=== PATIENT | female | born 1945 | race Caucasian/White ===

== ENCOUNTER 2017-01-30 10:04 | Inpatient (IN) | payer OTHER, BC ==
[~2017-01-30] VITALS: Ht 154.9 cm; Wt 86.6 kg
--- NOTE | ~2017-01-30 | EKG ---
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 : 1945 Requested By: Sanjay Tejada Order Number: [id number] MD: Victor Manuel Andujar Measurements Intervals [place] Rate: 103 P: -3 ND: 140 QRS: 123 QRSD: 92 T: 21 QT: 385 QTc: 504 Interpretive Statements Sinus tachycardia Poor R wave progression Prolonged QT interval Compared to ECG 06/08/2002 20:44:04 No significant change was found Electronically Signed On 01-31-2017 8:31:27 CDT by Victor Manuel Andujar [email or web address] <ELECTRONICALLY SIGNED> By: Victor Manuel Andujar MD, [facility] 01/31/17830 103 103 Victor Manuel Andujar MD, [facility] /EPI
[~2017-01-30 10:04] MED LIST: ASPIRIN EC325 M1 PO; CALCIUM 600 +1 EAC8 PO; GLUCOSAMINE-CH1 EA36 PO; HUMULIN N100 UNIT/1 SUBQ; HUMULINR100; LIPITOR20 MG PO; POTASSIUM99 M1 PO
[2017-01-30 10:08] VITALS: BP 98/66
[2017-01-30 10:52] LABS: ABSOLUTE NEUTROPHILS 8.4 thou/uL (1.4-8.2); BASOPHILS 0.8 % (0.0-2.0); EOSINOPHILS 1.4 % (0.0-3.0); HEMATOCRIT 36.7 % (37.0-47.0); HEMOGLOBIN 12.2 gm/dL (12.0-15.0); LYMPHOCYTES 20.3 % (24.0-44.0); MCH 29.9 pg (26.0-34.0); MCHC 33.2 g/dL (28.0-37.0); MCV 90.1 fL (80.0-100.0); MONOCYTES 7.1 % (1.0-8.0); PLATELET COUNT 294 thou/uL (150-400); POLYS 70.4 % (36.0-66.0); RBC 4.07 mil/uL (4.20-5.00); RDW 13.7 % (10.5-14.5); WBC 11.9 thou/uL (4.0-11.0)
[2017-01-30 10:54] LABS: MANUAL DIFF NO
[2017-01-30 11:04] LABS: APTT 20.7 Seconds (24.5-32.8); PROTIME 10.4 Seconds (9.3-11.4)
[2017-01-30 11:28] LABS: CALCIUM 9.5 mg/dL (8.5-10.1); CREATININE 0.5 mg/dL (0.6-1.0); POTASSIUM 4.1 mmol/L (3.5-5.1)
[2017-01-30 11:36] LABS: TROPONIN-I 0.04 ng/mL (<0.04-0.07)
[2017-01-30 12:38] VITALS: BP 119/69
[2017-01-30 12:43] VITALS: BP 119/69
[2017-01-30] MEDS ORDERED: NORCO 5-325 TA1 EACH PO (15:11)
[2017-01-30] MEDS ORDERED: NOVOLOG100 UNIT/1 SUBQ (15:14)
[2017-01-30] MEDS ORDERED: HUMULIN R100 UNIT/M SUBQ (15:18)
[2017-01-30] MEDS ORDERED: KLOR-CON 1010 MEQ PO (15:21)
[2017-01-30] MEDS ORDERED: KETOCONAZOLE60 GM TOP (15:23)
[2017-01-30] MEDS ORDERED: TRAMADOL 50 MG50 MG PO (15:27)
[2017-01-30 19:15] VITALS: BP 116/55
[2017-01-30 22:07] LABS: HEMATOCRIT 32.5 % (37.0-47.0); HEMOGLOBIN 11.1 gm/dL (12.0-15.0)
[2017-01-30 23:28] VITALS: BP 130/47
[2017-01-31 04:06] VITALS: BP 95/40
[2017-01-31 04:25] LABS: ABSOLUTE NEUTROPHILS 6.9 thou/uL (1.4-8.2); BASOPHILS 0.9 % (0.0-2.0); EOSINOPHILS 1.3 % (0.0-3.0); HEMATOCRIT 29.1 % (37.0-47.0); HEMOGLOBIN 10.1 gm/dL (12.0-15.0); LYMPHOCYTES 21.3 % (24.0-44.0); MCH 30.7 pg (26.0-34.0); MCHC 34.5 g/dL (28.0-37.0); MCV 89.1 fL (80.0-100.0); MONOCYTES 7.7 % (1.0-8.0); PLATELET COUNT 256 thou/uL (150-400); POLYS 68.8 % (36.0-66.0); RBC 3.27 mil/uL (4.20-5.00); RDW 13.6 % (10.5-14.5)
[2017-01-31 04:30] LABS: MANUAL DIFF NO
[2017-01-31 04:31] LABS: CALCIUM 8.4 mg/dL (8.5-10.1); CREATININE 0.5 mg/dL (0.6-1.0)
[2017-01-31 07:35] VITALS: BP 98/36
[2017-01-31] MEDS ORDERED: CIPRO500 MG PO (09:24)
[2017-01-31] MEDS ORDERED: FLAGYL500 MG PO (09:24)
[2017-01-31 10:41] VITALS: BP 98/36
== END 2017-01-31 12:51 | disposition home or self-care (01) | DRG 391 ==
LOC: ER 10:04 → 2N 12:09 → ENTRNSPT 01-31 12:37 → EDTRNSPTSTS 01-31 12:39 → 2N 01-31 12:51
PROVIDERS: Emergency Medicine; Internal Medicine Gastroenterology; Internal Medicine Geriatric Medicine
DX: K57.92 Diverticulitis of intestine, part unspecified, without perforation or abscess without bleeding (principal); J96.21 Acute and chronic respiratory failure with hypoxia; I10 Essential (primary) hypertension; J44.9 Chronic obstructive pulmonary disease, unspecified; M54.9 Dorsalgia, unspecified; R10.2 Pelvic and perineal pain; E78.5 Hyperlipidemia, unspecified; F17.200 Nicotine dependence, unspecified, uncomplicated; E11.51 Type 2 diabetes mellitus with diabetic peripheral angiopathy without gangrene; Z90.49 Acquired absence of other specified parts of digestive tract; Z90.89 Acquired absence of other organs; Z90.710 Acquired absence of both cervix and uterus; Z88.6 Allergy status to analgesic agent; Z88.8 Allergy status to other drugs, medicaments and biological substances; Z79.82 Long term (current) use of aspirin; Z79.4 Long term (current) use of insulin; Z79.899 Other long term (current) drug therapy; Z86.010 Personal history of colon polyps
CPT/HCPCS: 10081

== ENCOUNTER 2018-02-21 13:32 | Inpatient (IN) | payer OTHER, BC ==
[~2018-02-21] VITALS: Ht 154.9 cm; Wt 78.9 kg
--- NOTE | ~2018-02-21 | EKG ---
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 : 1945 Requested By: Christelle Schwartz Order Number: [id number] MD: Liang Travis Measurements Intervals [place] Rate: 93 P: 50 WI: 173 QRS: 162 QRSD: 96 T: 25 QT: 372 QTc: 463 Interpretive Statements Sinus rhythm Left posterior fascicular block Compared to ECG 01/30/2017 10:30:46 Left posterior fascicular block now present T-wave abnormality now present Sinus tachycardia no longer present Poor R-wave progression no longer present Prolonged QT interval no longer present Electronically Signed On 02-23-2018 17:29:14 CDT by Liang Travis [email or web address] <ELECTRONICALLY SIGNED> By: Liang Travis MD 02/23/18 1729 1353 1353 Liang Travis MD /EPI
--- NOTE | ~2018-02-21 | CRIT ---
[facility] [address] [place] [address] CRITICAL CARE NOTE Name: KARINANAHUN Azra Room #: 456-P ADM IN M.R.#: [id number] Admission: 02/21/18 Attend Phys: Daniel Paz MD Discharge: Date of : 41 Report #: [id number] THIS REPORT FOR: //name// CC: Daniel Dye SUBJECTIVE: The patient is a 72-year-old female I have been asked to see for further evaluation of bilateral left and right lower quadrant abdominal pain, which has occurred over the course of last 3 weeks or so. She has had recent development of diarrhea as well. Not a good historian; however, her daughter is at the bedside. She has had a colonoscopy in the past year or so. She has had history of diverticulosis, but no evidence of diverticulitis in the past. She has not had pain like this in the past. She has had bleeding from diverticulosis in the past. She denies any fevers or chills. She did have some nausea and vomiting. ALLERGIES: She is allergic to no medications. MEDICAL HISTORY: Notable for diabetes, diverticulosis, cholecystectomy, hysterectomy, tonsillectomy, peripheral vascular disease, hyperlipidemia, COPD, P. vera, pilonidal cyst. SOCIAL HISTORY: She smokes a pack per day. Currently denies significant alcohol consumption. REVIEW OF SYSTEMS: Negative for weight loss, weakness or fatigue. She denies head, eyes, ears, nose or throat complaints. She denies chest pain, chest palpitation, chest pressure, cough, shortness of breath, wheezing, genitourinary, musculoskeletal or neuropsychiatric complaints, otherwise. OBJECTIVE: VITAL SIGNS: Afebrile. Stable. HEENT: Nonicteric. NECK: No JVD, thyromegaly or bruits. CARDIOVASCULAR: Regular. LUNGS: Clear. ABDOMEN: Soft, nondistended. She does have tenderness in the left lower quadrant and right lower quadrant. No rebound or guarding. EXTREMITIES: No clubbing, cyanosis or edema. NEUROLOGIC: Not performed. RECTAL: Deferred. PERTINENT LABORATORY DATA: Include hemoglobin 17.1, white count 8.4. Serum chemistry reviewed. No significant abnormality. Urinalysis reviewed. C. diff pending. CT abdomen and pelvis, diffuse diverticulosis. No evidence of diverticulitis. She did have CT angiography in 2014, but this was of the head. [address] [address] CRITICAL CARE NOTE Name: NAHUN COLLINS Azra Room #: 456-P [facility] IN [facility]#: [id number] Admission: 02/21/18 Attend Phys: Daniel Paz MD Discharge: Date of : 41 Report #: [id number] In summary, the patient has tenesmus, change in bowel pattern with some constipation sensation as well as diarrhea and left and right lower quadrant pain suggestive of acute colitis. She has had a colonoscopy done in the past, which revealed only diverticulosis per her history. At this point, we will proceed with colonoscopy but are awaiting stool studies. I would advance her diet and monitor her and then consider a colonoscopy if her symptoms persist for definitive diagnosis and treatment. I did appreciate the opportunity to participate in her care. We will continue to follow. <ELECTRONICALLY SIGNED> By: Mustapha Noel MD 02/23/18 1727 0943 1307 Amadou Gregory MD /nt
[~2018-02-21 13:32] MED LIST changes: +CIPRO500 MG PO; +FLAGYL500 MG PO; +GLUCOSAMINE-CH1 EA15 PO; -GLUCOSAMINE-CH1 EA36 PO; +HUMULIN R100 UNIT/M SUBQ; +KETOCONAZOLE60 GM TOP; +KLOR-CON 1010 MEQ PO; +NORCO 5-325 TA1 EACH PO; +NOVOLOG100 UNIT/1 SUBQ; +TRAMADOL 50 MG50 MG PO
[2018-02-21 13:35] VITALS: BP 130/60
[2018-02-21 13:57] LABS: URINE BLOOD NEGATIVE (Negative); URINE CLARITY CLEAR; URINE COLOR YELLOW; URINE GLUCOSE-RANDOM* NEGATIVE (Negative); URINE KETONES 1+ (Negative); URINE LEUKOCYTES-REFLEX NEGATIVE (Negative); URINE NITRITE-REFLEX NEGATIVE (Negative); URINE PROTEIN (DIPSTICK) 1+ (Negative); URINE SPECIFIC GRAVITY 1.025 (1.005-1.035); URINE UROBILINOGEN 0.2 E.U./dl (0.2-1.0)
[2018-02-21 14:01] LABS: ICTOTEST (BILI CONFIRMATORY) Negative (Negative); URINE BILIRUBIN NEGATIVE (Negative)
[2018-02-21 14:03] LABS: CASTS None Seen /LPF (None Seen); CRYSTALS None Seen /LPF (None Seen); SQUAMOUS 4-10 Moderate /LPF (0-3); URINE RBC None Seen /HPF (0-2); URINE WBC-REFLEX None Seen /HPF (0-5)
[2018-02-21] MEDS ORDERED: HUMULIN N100 UNIT/1 SUBQ (14:03)
[2018-02-21] MEDS ORDERED: LIPITOR 20 MG T20 M1 PO (14:04)
[2018-02-21 14:31] LABS: HEMATOCRIT 49.7 % (37.0-47.0); HEMOGLOBIN 17.1 gm/dL (12.0-15.0); MCH 31.2 pg (26.0-34.0); MCHC 34.4 g/dL (28.0-37.0); MCV 90.6 fL (80.0-100.0); RBC 5.49 mil/uL (4.20-5.00); RDW 13.2 % (10.5-14.5); WBC 8.4 thou/uL (4.0-11.0)
[2018-02-21 14:42] LABS: ANION GAP 11 mmol/L (7-16); BUN 10 mg/dL (7-18); CALCIUM 10.1 mg/dL (8.5-10.1); CHLORIDE 100 mmol/L (98-107); CO2 25 mmol/L (21-32); CREATININE 0.8 mg/dL (0.6-1.0); GLUCOSE 212 mg/dL (74-106); POTASSIUM 3.9 mmol/L (3.5-5.1); SODIUM 136 mmol/L (136-145)
[2018-02-21 14:50] LABS: ALBUMIN 3.6 g/dL (3.4-5.0); LIPASE 54 U/L (73-393); SGOT 14 U/L (15-37); SGPT 13 U/L (30-65); TOTAL BILIRUBIN 0.4 mg/dL (<0.1-1.0); TROPONIN-I <0.06 ng/mL (<0.06)
[2018-02-21 15:40] VITALS: BP 140/70
[2018-02-21 16:31] VITALS: BP 155/80
[2018-02-21 17:28] LABS: TSH 1.067 uIU/mL (0.358-3.740)
[2018-02-21 21:30] VITALS: BP 135/80
[2018-02-22 05:18] VITALS: BP 126/61
[2018-02-22 06:13] LABS: HEMATOCRIT 46.4 % (37.0-47.0); MCH 29.4 pg (26.0-34.0); MCHC 32.2 g/dL (28.0-37.0); MCV 91.4 fL (80.0-100.0); RBC 5.08 mil/uL (4.20-5.00); RDW 13.8 % (10.5-14.5); WBC 11.6 thou/uL (4.0-11.0)
[2018-02-22 06:16] LABS: HEMOGLOBIN 14.9 gm/dL (12.0-15.0)
[2018-02-22 06:27] LABS: CALCIUM 8.6 mg/dL (8.5-10.1); CREATININE 0.6 mg/dL (0.6-1.0); MAGNESIUM 1.3 mg/dL (1.8-2.4); POTASSIUM 3.6 mmol/L (3.5-5.1)
[2018-02-22 07:24] VITALS: BP 155/89
[2018-02-22 16:01] VITALS: BP 110/58
[2018-02-22 18:56] VITALS: BP 132/59
[2018-02-23 03:56] VITALS: BP 157/80
[2018-02-23 08:27] VITALS: BP 130/67
[2018-02-23 08:42] LABS: HEMATOCRIT 44.9 % (37.0-47.0); HEMOGLOBIN 14.9 gm/dL (12.0-15.0); MCH 30.4 pg (26.0-34.0); MCHC 33.1 g/dL (28.0-37.0); MCV 91.8 fL (80.0-100.0); RBC 4.89 mil/uL (4.20-5.00); WBC 10.4 thou/uL (4.0-11.0)
[2018-02-23 08:53] LABS: CALCIUM 8.3 mg/dL (8.5-10.1); CREATININE 0.5 mg/dL (0.6-1.0); MAGNESIUM 1.6 mg/dL (1.8-2.4)
[2018-02-23 16:31] VITALS: BP 116/59
[2018-02-23 20:13] VITALS: BP 141/70
[2018-02-24 05:51] VITALS: BP 126/58
[2018-02-24 08:00] VITALS: BP 126/65
[2018-02-24 08:20] LABS: HEMATOCRIT 39.8 % (37.0-47.0); HEMOGLOBIN 13.4 gm/dL (12.0-15.0); MCH 30.8 pg (26.0-34.0); MCHC 33.7 g/dL (28.0-37.0); MCV 91.4 fL (80.0-100.0); RBC 4.36 mil/uL (4.20-5.00); RDW 13.9 % (10.5-14.5); WBC 7.9 thou/uL (4.0-11.0)
[2018-02-24 08:34] LABS: CALCIUM 8.1 mg/dL (8.5-10.1); CREATININE 0.6 mg/dL (0.6-1.0); MAGNESIUM 1.7 mg/dL (1.8-2.4); POTASSIUM 3.8 mmol/L (3.5-5.1)
[2018-02-24] MEDS ORDERED: FIRVANQ50 MG/1 ML PO (13:03)
[2018-02-24] MEDS ORDERED: NORCO 5-325 TA1 EACH PO (13:04)
[2018-02-24 13:23] VITALS: BP 126/65
[2018-02-24 15:50] VITALS: BP 106/56
[2018-02-24 19:50] VITALS: BP 154/78
[2018-02-25 04:10] VITALS: BP 122/52
[2018-02-25 08:00] VITALS: BP 143/74
== END 2018-02-25 13:50 | disposition home or self-care (01) | DRG 872 ==
LOC: ER 13:32 → EROBS 15:31 → 4W 15:31
PROVIDERS: Internal Medicine; Student in an Organized Health Care Education/Training Program
DX: A41.9 Sepsis, unspecified organism (principal); A04.72 Enterocolitis due to Clostridium difficile, not specified as recurrent; K57.20 Diverticulitis of large intestine with perforation and abscess without bleeding; E11.51 Type 2 diabetes mellitus with diabetic peripheral angiopathy without gangrene; E78.5 Hyperlipidemia, unspecified; J44.9 Chronic obstructive pulmonary disease, unspecified; F17.210 Nicotine dependence, cigarettes, uncomplicated; K76.9 Liver disease, unspecified; M19.90 Unspecified osteoarthritis, unspecified site; M81.0 Age-related osteoporosis without current pathological fracture; Z90.710 Acquired absence of both cervix and uterus; Z95.820 Peripheral vascular angioplasty status with implants and grafts; Z87.19 Personal history of other diseases of the digestive system; Z79.899 Other long term (current) drug therapy
CPT/HCPCS: 10040

== ENCOUNTER 2018-09-05 12:58 | Emergency (ER) | payer OTHER, BC ==
[~2018-09-05] VITALS: Ht 154.9 cm; Wt 78.9 kg
[~2018-09-05 12:58] MED LIST changes: +FIRVANQ50 MG/1 ML PO; +LIPITOR 20 MG T20 M1 PO
[2018-09-05 13:41] LABS: ABSOLUTE NEUTROPHILS 6.5 thou/uL (1.4-8.2); BASOPHILS 0.8 % (0.0-2.0); EOSINOPHILS 2.2 % (0.0-3.0); HEMATOCRIT 42.5 % (37.0-47.0); HEMOGLOBIN 14.4 gm/dL (12.0-15.0); LYMPHOCYTES 15.2 % (24.0-44.0); MCH 30.8 pg (26.0-34.0); MCV 90.8 fL (80.0-100.0); MONOCYTES 5.8 % (1.0-8.0); PLATELET COUNT 241 thou/uL (150-400); RBC 4.68 mil/uL (4.20-5.00); RDW 13.7 % (10.5-14.5); WBC 8.5 thou/uL (4.0-11.0)
[2018-09-05 13:50] LABS: ANION GAP 11 mmol/L (7-16); BUN 14 mg/dL (7-18); CALCIUM 9.2 mg/dL (8.5-10.1); CHLORIDE 105 mmol/L (98-107); CO2 27 mmol/L (21-32); CREATININE 0.7 mg/dL (0.6-1.0); GLUCOSE 361 mg/dL (74-106); POTASSIUM 4.2 mmol/L (3.5-5.1); SODIUM 143 mmol/L (136-145)
[2018-09-05 13:58] LABS: TROPONIN-I <0.06 ng/mL (<0.06)
[2018-09-05] MEDS ORDERED: PREDNISONE 20 M20 MG PO (16:36)
[2018-09-05 16:54] VITALS: BP 135/67
--- NOTE | 2018-09-06 13:38 | EKG ---
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[facility] : 1945 Requested By: Chinyere Nunn Order Number: [id number] MD: Victor Manuel Andujar Measurements Intervals [place] Rate: 94 P: 37 MS: 197 QRS: 133 QRSD: 98 T: -2 QT: 374 QTc: 468 Interpretive Statements Sinus rhythm Left posterior fascicular block Borderline T wave abnormalities Compared to ECG 02/21/2018 13:53:24 No significant change was found Electronically Signed On 09-06-2018 13:38:23 CDT by Victor Manuel Andujar [email or web address] ��������������������������������������������� <ELECTRONICALLY SIGNED> ���������������������������������������� By: Victor Manuel Andujar MD, [facility] ��������������������������������������������� 09/06/18 1338 1315 131 Victor Manuel Andujar MD, [facility] /EPI
== END 2018-09-05 17:21 | disposition home or self-care (01) ==
LOC: ER 12:58
PROVIDERS: Emergency Medicine
DX: J44.1 Chronic obstructive pulmonary disease with (acute) exacerbation (principal); E11.9 Type 2 diabetes mellitus without complications; E78.5 Hyperlipidemia, unspecified; Z90.49 Acquired absence of other specified parts of digestive tract; Z90.710 Acquired absence of both cervix and uterus; F17.210 Nicotine dependence, cigarettes, uncomplicated

== ENCOUNTER → 2018-10-05 | Outpatient (CLI) | payer OTHER, BC ==
[~2018-10-05] MED LIST changes: +PREDNISONE 20 M20 MG PO
== END ==
LOC: NUC 08:01
DX: R06.00 Dyspnea, unspecified (principal); I73.9 Peripheral vascular disease, unspecified; I25.2 Old myocardial infarction; E78.5 Hyperlipidemia, unspecified; J44.9 Chronic obstructive pulmonary disease, unspecified; E66.9 Obesity, unspecified; E11.9 Type 2 diabetes mellitus without complications; F17.210 Nicotine dependence, cigarettes, uncomplicated; Z79.4 Long term (current) use of insulin; Z88.8 Allergy status to other drugs, medicaments and biological substances

== ENCOUNTER → 2018-11-09 | Outpatient (CLI) | payer OTHER, BC ==
[~2018-11-09] VITALS: Ht 154.9 cm; Wt 78.0 kg
[~2018-11-09] MED LIST changes: +ASPIR 8181 M1 PO; +CHANTIX1 MG PO; +FLORASTOR250 MG PO; +IMDUR 30 MG TAB30 M1 PO; +TOPROL XL25 MG PO
[2018-11-09 10:02] VITALS: BP 108/58
[2018-11-09 10:06] LABS: HEMATOCRIT 49.2 % (37.0-47.0); HEMOGLOBIN 16.2 gm/dL (12.0-15.0); MCH 30.8 pg (26.0-34.0); MCV 93.4 fL (80.0-100.0); RBC 5.27 mil/uL (4.20-5.00); RDW 13.8 % (10.5-14.5)
[2018-11-09 10:22] LABS: CALCIUM 10.4 mg/dL (8.5-10.1); CREATININE 0.5 mg/dL (0.6-1.0); POTASSIUM 4.3 mmol/L (3.5-5.1)
--- NOTE | 2018-11-09 13:44 | CATHLAB ---
[facility] [place] [address] INVASIVE PROCEDURE REPORT Name: NAHUN COLLINS [facility] [id number] ������������� Admission: 11/09/18 ������������� Attend Phys: Hunter Brothers MD Discharge: ��� ������������� ��� Date of : 41 Date of Service: 11/09/18 1343 �� Report #: [id number] �������� ��������������������������������������������[id number] THIS REPORT FOR: //name// APPROVED REPORT Study performed: 11/09/2018 10:39:13 Patient Details Patient Status: Out-Patient Room #: The patient is a 72 year-old female Event Personnel Hunter Brothers Head Athletic Trainer/Strength Coach, Molly Marks RN RN, Shravan Pan RN RN, Nahun Gallegos BOILERMAKER WELDER Scrub, Loren Dhaliwal RTR, BOILERMAKER WELDER Monitor Procedures Performed Art Access - R radial artery Left Heart Cath w/or w/o Coronaries [id number] [facility] Hemostasis with Hemoband Indication Dyspnea, Positive stress test, Chest pain Risk Factors Peripheral Vascular Disease, Chronic Lung DiseaseHypercholesterolemia, Hypertension, Diabetes Tobacco History () Procedure Narrative The Right Wrist^ was infiltrated with 1% Lidocaine subcutaneous anesthesia. A TRANSRADIAL SLENDER 6F GLIDESCallFireTH KIT #[id number] sheath was inserted into the Right Radial Artery^. Coronary angiography was performed using coronary diagnostic catheters. The right coronary system was accessed and visualized with a JR4 catheter. The left coronary system was accessed and visualized with a JL3.5 catheter. The left ventricle was accessed and visualized with a angled Pigtail catheter. Left ventricular/Aortic Valve gradient assessed via catheter pullback. Left ventriculogram was performed in 30 degree projection. VascBand was utilized for hemostasis. Intraoperative Conscious Sedation No sedation was used. Fluoro Time: 4.48 minutes Dose: DAP 6141.60 cGycm2 768 mGy Contrast Type and Amount: Omnipaque 105 ml [facility] [place] [address] INVASIVE PROCEDURE REPORT Name: NAHUN COLLINS Room #: REG [facility].#: [id number] ������������� Admission: 11/09/18 ������������� Attend Phys: Hunter Brothers MD Discharge: ��� ������������� ��� Date of : 41 Date of Service: 11/09/18 1343 �� Report #: [id number] �������� ��������������������������������������������[id number] Coronary Angiography The patient's coronary anatomy is right dominant. Diagnostic Cath Left Main This is a large caliber vessel, with no flow-limiting lesions. LAD This is a moderate size caliber vessel, traversing the anterior wall and terminating at the apex. Within the proximal segment, there is a severe stenosis, 70-80%. Appears to also involve the ostium of the second diagonal artery. Diagonal 1 This is a patent vessel, with no flow-limiting lesions. Diagonal 2 There is a severe LAD stenosis that involves the ostium of this vessel. Circumflex This is a small-caliber vessel, supplies 2 small OM vessels. OM1 This is a patent a vessel, with no flow-limiting lesions. OM2 This is a patent vessel, with mild disease. Right Coronary The RCA is a tortuous, calcified vessel with multiple severe occlusions involving the proximal, mid and distal segments. R PDA This is a patent vessel, with no flow-limiting lesions. There are faint collaterals to the distal PDA from the left coronary artery. RPLV This is a patent vessel, with no flow-limiting lesions. Left Ventriculography The left ventricle is normal in size with normal contractility. The left ventricular ejection fraction is estimated to be 55-60%. Hemodynamics The aortic pressure is 142/68 mmHg with a mean of 98 mmHg. The left ventricular pressure is 140/11 mmHg with a mean of mmHg. The left ventricular end diastolic pressure is 24 mmHg. Conclusion 1. Severe two-vessel coronary artery disease. The RCA is a dominant vessel, tortuous and calcified in its course with multiple stenoses. 2. Preserved LV systolic function. 3. Recommend CV consultation. Consider staged angioplasty if deemed [facility] [address] [place] [address] INVASIVE PROCEDURE REPORT Name: NAHUN COLLINS Room #: REG [facility]..#: [id number] ������������� Admission: 11/09/18 ������������� Attend Phys: Hunter Brothers MD Discharge: ��� ������������� ��� Date of : 41 Date of Service: 11/09/18 1343 �� Report #: [id number] �������� ��������������������������������������������[id number] not a suitable candidate for surgery. 4. Recommend aggressive risk factor management. ��������������������������������������������� <ELECTRONICALLY SIGNED> ���������������������������������������� By: Hunter Brothers MD ��������������������������������������������� 11/09/18 1343 134 42 Hunter Brothers MD /INF
[2018-11-09 13:55] LABS: APTT 29.4 Seconds (24.5-32.8); PROTIME 10.6 Seconds (9.3-11.4)
[2018-11-09 13:56] LABS: TOTAL BILIRUBIN 0.3 mg/dL (<0.1-1.0); TOTAL PROTEIN 8.3 g/dL (6.4-8.2)
--- NOTE | 2018-11-09 15:06 | 2DMMODE ---
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 Room #: 5 Status: routine BSA: 1.77 HR: 70 bpm BP: 122/51 mmHg Rhythm: NSR Other Information Study Quality: Adequate Indications COPD Diabetes Dyspnea CAD 2D Dimensions RVDd: 24.87 mm IVSd: 10.79 (7-11mm) LVOT Diam: 18.73 (18-24mm) LVDd: 45.80 mm PWd: 11.20 (7-11mm) Ascending Ao: 26.53 (22-36mm) LVDs: 29.93 (25-40mm) Aortic Root: 35.31 mm Volumes Left Atrial Volume (Systole) Single Plane 4CH: 37.26 mL Single Plane 2CH: 40.59 mL LA ESV Index: 29.00 mL/m2 Aortic Valve AoV Peak Alvaro.: 1.20 m/s AO Peak Gr.: 5.73 mmHg LVOT Max P.71 mmHg LVOT Max V: 0.82 m/s TESSIE Vmax: 1.89 cm2 Mitral Valve [facility] [address] [place] [address] 2 D/M-MODE ECHOCARDIOGRAM Name: NAHUN COLLINS Room #: REG [facility]#: [id number] ������������� Admission: 11/09/18 ������������� Attend Phys: Hunter Brothers MD Discharge: ��� ������������� ��� Date of : 41 Date of Service: 11/09/18 1505 �� Report #: [id number] �������� ��������������������������������������������[id number] E/A Ratio: 0.7 MV Decel. Time: 235.15 ms MV E Max Alvaro.: 0.78 m/s MV A Alvaro.: 1.07 m/s MV PHT: 68.19 ms IVRT: 87.66 ms Pulmonary Valve PV Peak Alvaro.: 1.18 m/s PV Peak Gr.: 5.57 mmHg Pulmonary Vein P Vein S: 0.35 m/s P Vein A: 0.22 m/s P Vein D: 0.31 m/s P Vein A Dur.: 101.5 msec P Vein S/D Ratio: 1.13 Left Ventricle The left ventricle is normal size. There is normal LV segmental wall motion. There is normal left ventricular wall thickness. Left ventricular systolic function is normal. The left ventricular ejection fraction is within the normal range. LVEF is 55-60%. Grade I - abnormal relaxation pattern. Right Ventricle The right ventricle is normal size. The right ventricular systolic function is normal. Atria The left atrium size is normal. The right atrium size is normal. Aortic Valve The aortic valve is normal in structure. No aortic regurgitation is present. There is no aortic valvular stenosis. Mitral Valve The mitral valve is normal in structure. There is no mitral valve regurgitation noted. No evidence of mitral valve stenosis. Tricuspid Valve The tricuspid valve is normal in structure. There is no tricuspid valve regurgitation noted. Pulmonic Valve The pulmonary valve is normal in structure. Trace pulmonic regurgitation. [facility] [address] [place] [address] 2 D/M-MODE ECHOCARDIOGRAM Name: KARINANAHUN A Room #: REG [facility]#: [id number] ������������� Admission: 11/09/18 ������������� Attend Phys: Hunter Brothers MD Discharge: ��� ������������� ��� Date of : 41 Date of Service: 11/09/18 1505 �� Report #: [id number] �������� ��������������������������������������������[id number] Great Vessels The aortic root is normal in size. IVC is normal in size and collapses >50% with inspiration. Pericardium There is no pericardial effusion. <Conclusion> The left ventricle is normal size. There is normal left ventricular wall thickness. Left ventricular systolic function is normal. Grade I - abnormal relaxation pattern. The right ventricle is normal size. The left atrium size is normal. The right atrium size is normal. The aortic valve is normal in structure. The mitral valve is normal in structure. There is no tricuspid valve regurgitation noted. ��������������������������������������������� <ELECTRONICALLY SIGNED> ���������������������������������������� By: Hunter Brothers MD ��������������������������������������������� 11/09/18 1505 1505 1505 Hunter Brothers MD /INF
--- NOTE | 2018-11-10 09:04 | EKG ---
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[facility] : 1945 Requested By: Hunter Brothers Order Number: [id number] MD: Victor Manuel Andujar Measurements Intervals [place] Rate: 90 P: 43 [place]: 177 QRS: 106 QRSD: 84 T: -12 QT: 432 QTc: 529 Interpretive Statements Sinus rhythm Atrial premature complexes Right axis deviation Nonspecific T wave abnormality Prolonged QT interval Compared to ECG 09/05/2018 13:15:57 Atrial premature complex(es) now present Electronically Signed On 11-10-2018 9:04:39 CDT by Victor Manuel Andujar [email or web address] ��������������������������������������������� <ELECTRONICALLY SIGNED> ���������������������������������������� By: Victor Manuel Andujar MD, [facility] ��������������������������������������������� [id number] 0 0 Victor Manuel Andujar MD, [facility] /EPI
[2018-11-10 12:06] LABS: GLYCOHEMOGLOBIN (HGB A1C) 9.1 % (4.8-5.6)
--- NOTE | 2018-11-10 15:54 | PFR/MVV ---
[facility] [address] [place] [address] PULMONARY FUNCTION MVV/REPORT Name: NAHUN COLLINS Room #: REG [facility]#: [id number] ������������������ Admission: 11/09/18 ������������������ Attend Phys: Hunter Brothers MD Discharge: ������������������ Date of : 41 Report #: [id number] THIS REPORT FOR: //name// >> SPIROMETRY: (BTPS) Height: 61 in cm Weight: 172 lbs kg Exam Date: 11/09/18 PRE-RX POST-RX PRED BEST %PRED BEST %PRED %CHG FVC LITERS . 2.39 . 2.29 . 96 . 2.27 . 95 . -1 FEV1 LITERS . 1.65 . 1.21 . 73 . 1.17 . 71 . -3 FEV1/FVC % . 71 . 53 . 74 . 52 . 73 . -2 BIL19-50% L/Sec . 1.99 . 0.42 . 21 . 0.43 . 22 . -2 PEF L/SEC . 5.00 . 3.76 . 75 . 2.90 . 58 . -23 FEF50/FIF50 UNITLESS . . . . . . MVV L/Min . 81 . 38 . 47 f 1/Min . . 60 . >> LUNG VOLUMES: (BTPS) PRE-RX POST-RX PRED AVG %PRED AVG %PRED %CHG VC Liters . 2.39 . 3.22 . 135 . . . TLC Liters . 4.18 . 11.90 . 285 . . . RV Liters . 1.73 . 8.68 . 503 . . . RV/TLC % . 41 . 73 . [address] . . . [address] Liters . 2.17 . 9.97 . 459 . . . FRC N2 Liters . . . . . . ERV Liters . 0.80 . 1.28 . 161 . . . IC Liters . 1.60 . 1.44 . 90 . . . >> DIFFUSION: DLCO ml/Min/mmHg . 19.3 . 3.0 . 15 . 2.1 . 11 . -31 DL Sunny ml/Min/mmHg . 19.3 . 3.0 . 15 . 2.1 . 11 . -31 DLCO/VA ml/Min/mmHg . 3.51 . 0.98 . 28 . 0.88 . 25 . -11 VA Liters . . 3.02 . . 2.35 . . -22 COMMENTS: COMMENTS: >> RESISTANCE: [address] [address] PULMONARY FUNCTION MVV/REPORT Name: NAHUN COLLINS Room #: REG [facility] Ming.#: [id number] ������������������ Admission: 11/09/18 ������������������ Attend Phys: Hunter Brothers MD Discharge: ������������������ Date of : 41 Report #: [id number] PRE-RX PRED AVG %PRED Raw Total cmH20/L/Sec . 1.28 . . Raw Insp cmH20/L/Sec . 1.04 . . Raw Exp cmH20/L/Sec . 1.47 . . Raw cmH20/L/Sec . 1.82 . 1.16 . 64 Gaw L/Sec/cmH20 . 0.521 . 0.864 . 166 sRaw cmH20 Sec . 3.94 . 10.80 . 274 sGaw l/cmH20 Sec . 0.254 . 0.093 . 36 Vtq Liters . 9.34 . . # = OUTSIDE 95% CONFIDENCE INTERVAL CALIBRATION: PRED: 3.00 ACTUAL: EXP 3.[address] [facility] [place] [address] [id number] >> INTERPRETATION/IMPRESSION: CC: Hunter Dye PULMONARY FUNCTION TEST Spirometric examination revealed mild airflow obstruction. There was no significant bronchodilator response. Hyperinflation is present with a total lung capacity measuring 285% of predicted. Residual volume measured 503% predicted. Diffusion capacity is markedly reduced, corrected for alveolar volume, it remained markedly reduced. Flow volume loop is consistent with airflow obstruction. IMPRESSION: Mild to moderate obstructive ventilatory defect, airtrapping suggest emphysema in type. Diffusion capacity is markedly reduced. Clinical correlation is recommended. ��������������������������������������������� <ELECTRONICALLY SIGNED> ���������������������������������������� By: Yousif Singh MD ��������������������������������������������� 11/10/18 1554 Yousif Singh MD /nt
--- NOTE | 2018-11-15 09:01 | HC ---
[facility] [address] [place] [address] CONSULTATION Name: NAHUN COLLINS Azra Room #: REG [facility]#: [id number] Admission: 11/09/18 ������������������ Attend Phys: Hunter Brothers MD Discharge: ������������������ Date of : 41 Report #: [id number] THIS REPORT FOR: //name// CC: Hunter Dye DATE OF SERVICE: 11/09/2018 We were asked by Dr. Brothers to see the patient after an outpatient catheterization. HISTORY OF PRESENT ILLNESS: The patient is a 72-year-old with unstable angina. The patient states that she had an episode of severe chest pain on 09/05/2018, characterized by chest and back pain radiating to the neck, nausea. The patient was seen in the Emergency Department and was told that this was a COPD exacerbation. The patient rejected this and sought opinion from her own doctor who initiated a cardiologic workup. According to the patient's daughter a nuclear stress test was positive. This led to cardiac catheterization today that shows important 2-vessel coronary artery disease including 75% LAD and 90% right coronary lesions. Left ventricular ejection fraction approximately 55%. PAST MEDICAL HISTORY: As mentioned is significant for chronic obstructive pulmonary disease, diabetes mellitus, peripheral arterial occlusive disease. PREVIOUS SURGICAL HISTORY: Includes stent placement in the right leg as well as cataract surgery, tonsil and adenoid, hysterectomy, appendectomy, and cholecystectomy. SOCIAL HISTORY: The patient is retired, , active smoker, who has consumed 1 pack a day for 62 years and does not intend to quit. FAMILY HISTORY: Positive for cardiac disease in father, both parents are . ALLERGIES: HYDROCODONE. MEDICATIONS: At home includes atorvastatin, calcium, vitamins, glucosamine, insulin, metoprolol, potassium, Florastor and [place]. REVIEW OF SYSTEMS: CONSTITUTIONAL: Denies fever or chills. HEENT: Denies headache, vertigo, hearing problems. RESPIRATORY: Has history of shortness of breath and dyspnea on exertion. CARDIAC: Has history of chest pain. SKIN: No rash or infection. ENDOCRINE: No goiter, no tremor. [facility] [address] [place] [address] CONSULTATION Name: KARINANAHUN Tobin Room #: REG [facility].#: [id number] Admission: 11/09/18 ������������������ Attend Phys: Hunter Brothers MD Discharge: ������������������ Date of : 41 Report #: [id number] GASTROINTESTINAL: Nausea associated with the angina. Denies vomiting, diarrhea or blood. GENITOURINARY: No urgency, frequency. NEUROLOGIC: No seizures. No muscle weakness. PSYCHIATRIC: No hallucination. MUSCULOSKELETAL: No joint swelling or stiffness. IMMUNOLOGIC: No lupoid rash, no rheumatoid arthritis. PHYSICAL EXAMINATION: VITAL SIGNS: Blood pressure 108/50, heart rate 85, respiratory rate 22, O2 sat 92. GENERAL: When I saw the patient, she was sitting in the burse of the pulmonary function studio. HEENT: No scleral icterus, no arcus. NECK: No mass, no bruit. CHEST: Decreased breath sounds. HEART: Rhythm regular. Distant sounds. No murmur audible. ABDOMEN: Protuberant, soft. EXTREMITIES: No cyanosis or edema. SKIN: No rash or infection. NEUROLOGIC: No obvious motor or sensory dysfunction. PSYCHIATRIC: Answers questions appropriately and is oriented x 3. In general, the patient looks her stated age. Smells of tobacco, has sort of a sallow complexion and is endomorph. IMPRESSION: The patient has important coronary artery disease in the setting of chronic obstructive pulmonary disease and diabetes. The patient is receiving pulmonary function testing right now and I would prefer to wait until all of the evaluations have been finished before discussing with Dr. Brothers whether the patient is a better surgical or interventional candidate. Certainly surgery is possible, but at increased risk of perioperative pulmonary complications. Thank you for the consult. ��������������������������������������������� <ELECTRONICALLY SIGNED> ���������������������������������������� By: Jhonatan Cates MD ��������������������������������������������� 11/15/18 0901 1611 0000 Jhonatan Cates MD /nt
== END | disposition home or self-care (01) ==
LOC: CATH 06:26
PROVIDERS: Internal Medicine Cardiovascular Disease; Physician Assistant
DX: I25.10 Atherosclerotic heart disease of native coronary artery without angina pectoris (principal); I65.23 Occlusion and stenosis of bilateral carotid arteries; R07.9 Chest pain, unspecified; J44.9 Chronic obstructive pulmonary disease, unspecified; E78.00 Pure hypercholesterolemia, unspecified; E11.9 Type 2 diabetes mellitus without complications; E78.5 Hyperlipidemia, unspecified; F17.210 Nicotine dependence, cigarettes, uncomplicated; Z90.49 Acquired absence of other specified parts of digestive tract; Z90.711 Acquired absence of uterus with remaining cervical stump; Z98.890 Other specified postprocedural states; Z79.899 Other long term (current) drug therapy; Z87.19 Personal history of other diseases of the digestive system; Z01.818 Encounter for other preprocedural examination

== ENCOUNTER → 2018-11-23 | Outpatient (CLI) | payer OTHER, BC ==
[~2018-11-23] VITALS: Ht 154.9 cm; Wt 78.0 kg
[~2018-11-23] MED LIST changes: +CLOPIDOGREL75 MG PO
[2018-11-23 08:47] VITALS: BP 138/61
== END | disposition home or self-care (01) ==
LOC: SPEC 07:43
DX: I70.248 Atherosclerosis of native arteries of left leg with ulceration of other part of lower leg (principal); L97.929 Non-pressure chronic ulcer of unspecified part of left lower leg with unspecified severity; I70.1 Atherosclerosis of renal artery; I10 Essential (primary) hypertension; I25.10 Atherosclerotic heart disease of native coronary artery without angina pectoris; E11.9 Type 2 diabetes mellitus without complications; J44.9 Chronic obstructive pulmonary disease, unspecified; E78.5 Hyperlipidemia, unspecified; Z86.73 Personal history of transient ischemic attack (TIA), and cerebral infarction without residual deficits; F17.210 Nicotine dependence, cigarettes, uncomplicated; Z90.49 Acquired absence of other specified parts of digestive tract; Z90.711 Acquired absence of uterus with remaining cervical stump; Z98.890 Other specified postprocedural states; Z87.19 Personal history of other diseases of the digestive system; Z95.5 Presence of coronary angioplasty implant and graft; Z88.8 Allergy status to other drugs, medicaments and biological substances; Z79.82 Long term (current) use of aspirin

== ENCOUNTER 2018-12-14 00:47 | Outpatient (CLI) | payer OTHER, BC ==
[~2018-12-14] VITALS: Ht 154.9 cm; Wt 76.2 kg
[~2018-12-14 00:47] MED LIST changes: -CLOPIDOGREL75 MG PO
[2018-12-14 08:49] LABS: HEMATOCRIT 43.3 % (37.0-47.0); HEMOGLOBIN 14.7 gm/dL (12.0-15.0); MCH 30.6 pg (26.0-34.0); MCHC 33.9 g/dL (28.0-37.0); MCV 90.3 fL (80.0-100.0); RBC 4.79 mil/uL (4.20-5.00); RDW 12.8 % (10.5-14.5); WBC 7.5 thou/uL (4.0-11.0)
[2018-12-14 08:50] VITALS: BP 114/54
[2018-12-14 09:00] LABS: ANION GAP 7 mmol/L (7-16); BUN 11 mg/dL (7-18); CALCIUM 9.5 mg/dL (8.5-10.1); CHLORIDE 102 mmol/L (98-107); CO2 31 mmol/L (21-32); CREATININE 0.6 mg/dL (0.6-1.0); GLUCOSE 201 mg/dL (74-106); POTASSIUM 3.8 mmol/L (3.5-5.1); SODIUM 140 mmol/L (136-145)
[2018-12-14 09:06] LABS: CHOLESTEROL 136 mg/dL (<200); HDL CHOLESTEROL 47 mg/dL (>40); LDL CHOLESTEROL 74 mg/dL (<100); TC:HDL 2.9 Ratio (Not establshd); TRIGLYCERIDE 78 mg/dL (<150); VLDL 16 mg/dL (<40)
--- NOTE | 2018-12-14 12:16 | EKG ---
[address] [address] ELECTROCARDIOGRAM REPORT Name: NAHUN COLLINS Room #: REG [facility]#: [id number] ������������������ Admission: 12/14/18 ������������������ Attend Phys: Hunter Brothers MD Discharge: ������������������ Date of : 41 Report #: [id number] ����������������������������������������������������������������� [id number] THIS REPORT FOR: //name// [facility] Test Date: 2018-12-14 Test Time: 09:02:00 Pat Name: NAHUN CEEN Department: Room: Gender: F Punchboard Stuffer: Anil JORDAN : 1945 Requested By: Hunter Brothers Order Number: [id number] MD: Liang Travis Measurements Intervals [place] Rate: 72 P: 43 WV: 176 QRS: 92 QRSD: 102 T: 44 QT: 424 QTc: 465 Interpretive Statements Sinus rhythm Left posterior fascicular block Compared to ECG 11/09/2018 09:51:57 Left posterior fascicular block now present Atrial premature complex(es) no longer present Right-axis deviation no longer present T-wave abnormality no longer present Prolonged QT interval no longer present Electronically Signed On 12-14-2018 12:15:53 CDT by Liang Travis [email or web address] ��������������������������������������������� <ELECTRONICALLY SIGNED> ���������������������������������������� By: Liang Travis MD ��������������������������������������������� 12/14/18 1215 1 09 Liang Travis MD /EPI
--- NOTE | 2018-12-14 13:21 | CATHLAB ---
[facility] [place] [address] INVASIVE PROCEDURE REPORT Name: NAHUN COLLINS Room #: REG [facility]#: [id number] ������������� Admission: 12/14/18 ������������� Attend Phys: Hunter Brothers MD Discharge: ��� ������������� ��� Date of : 41 Date of Service: 12/14/18 1321 �� Report #: [id number] �������� ��������������������������������������������[id number] THIS REPORT FOR: //name// APPROVED REPORT Study performed: 12/14/2018 10:09:48 Patient Details Patient Status: Out-Patient Room #: The patient is a 73 year-old female Event Personnel Hunter Brothers Central Office Supervisor, Loren Dhaliwal RTR, SHEEP FARM WORKER Monitor, Esha Mejia RN, Nahun Gallegos SHEEP FARM WORKER Scrub Procedures Performed Art Access - L femoral artery* LINDSEY Place w/wo Plasty Single LAD 441888 [id number] Initial Mod Sed Same Phys/QHP Gr5y 909612 25746 Mod Sed Same Phys/QHP Ea 707881 Hemostasis with Manual pressure Hemostasis with Hemoband Indication Dyspnea, Unstable angina , Positive stress test Risk Factors Obesity, Peripheral Vascular Disease, Chronic Lung DiseaseHypercholesterolemiaPhysical Activity, Coronary Artery DiseaseHypertension, Tobacco History () Previous Procedures/Diagnoses Previous Femoral Procedure Procedure Narrative The left femoral was infiltrated with 1% Lidocaine subcutaneous anesthesia. A PINNACLE 6FR Sheath #[id number] sheath was inserted into the LFA^. Coronary angiography was performed using coronary diagnostic catheters. The left coronary system was accessed and visualized with a VISTA 6FR XB 3.5 #[id number] catheter. Intraoperative Conscious Sedation Sedation start time: 10:50 Case end Time: 11:28 Versed 0.5 mg Fluoro Time: 9.50 minutes [place] [address] [place] [address] INVASIVE PROCEDURE REPORT Name: NAHUN COLLINS Room #: REG [facility]#: [id number] ������������� Admission: 12/14/18 ������������� Attend Phys: Hunter Brothers MD Discharge: ��� ������������� ��� Date of : 41 Date of Service: 12/14/18 1321 �� Report #: [id number] �������� ��������������������������������������������[id number] Dose: DAP 9950.50 cGycm2 1431 mGy Contrast Type and Amount: Omnipaque 115 ml Hemodynamics The aortic pressure is 150/69 mmHg with a mean of 101 mmHg. PCI Technique Lesion Anticoagulation was achieved with Angiomax. Patient was preloaded with Plavix. Percutaneous coronary intervention was performed on the proximal left anterior descending artery segment. The lesion stenosis prior to intervention was 90% with GHASSAN 3 flow. A VISTA 6FR XB 3.5 #[id number] Guide Catheter was used to engage the ostium. A Luge Wire .014 x 182CM #[id number] Interventional Guidewire was used to cross the lesion. BALLOON DILATION A Balloon catheter Euphora RX 2.5 x 10 #[id number] was inserted and inflated up to 8.00atm for 19seconds. STENT DEPLOYMENT A drug-eluting stent RESOLUTE JIM 2.5 X 8 #[id number] was inserted and inflated up to 16.00atm for 22seconds. POST STENT DEPLOYMENT BALLOON DILATION A Balloon catheter Euphora NC RX 3.0 x 6 #[id number] was inserted and inflated up to 16.00atm for 14seconds. Final angiography reveals 0 % stenosis with GHASSAN 3 flow. Conclusion 1. Successful insertion of a drug-eluting stent into the proximal LAD segment. 2. The patient tolerated the procedure and remains hemodynamically stable. 3. Recommend dual antiplatelet therapy and aggressive risk factor management. ��������������������������������������������� <ELECTRONICALLY SIGNED> ���������������������������������������� By: Hunter Brothers MD ��������������������������������������������� 12/14/181320 20 20 Hunter Brothers MD /INF
[2018-12-14 15:00] VITALS: BP 121/58
--- NOTE | 2018-12-14 18:09 | NUR ---
PT ARRIVED TO THE UNIT AT APPROX 1450 BY PEDIATRIC OPHTHALMOLOGIST STAFF, ACCOMPANIED BY DAUGHTER WITH ALL BELONGINGS. PT ALERT AND ORIENTED, VSS, C/O CHRONIC PAIN IN RIGHT ARM FROM HX STROKE. O2 SATS WNL ON 4L O2, DENIES CHEST PAIN, SOB. LEFT GROIN SITE CDI, NO HEMATOMA. ADMISSION COMPLETE, CONSENTS SIGNED. DISCUSSED WITH PT REGARDING TELEMETRY SAFETY SHEET- COMMUNICATES UNDERSTANDING. PT URINATING ADEQUATELY, APPETITE ADQUATE. DENIES CONCERNS AT THIS TIME. WILL CONT TO MONITOR PT/GROIN SITE/VITALS.
[2018-12-14 20:30] VITALS: BP 135/64
[2018-12-14 20:54] VITALS: BP 123/63
[2018-12-15 00:47] VITALS: BP 126/61
--- NOTE | 2018-12-15 04:20 | NUR ---
pt AO X4. POST CARDIAC CATH. ACCESS THROUGH LEFT GROIN. SITE C/D/I. VITALS STABLE. C/O GENERALIZED PAIN AND MILD CHEST PAIN THAT DOES NOT RADIATE, NO NAUSEA ACCOMPANIES, OR SOA. MORPHINE UTILIZED X 2. MAXED DOSE REACHED. PT WAS OFF BEDREST AT 2030 . VOIDING IN BATHROOM. POST CATH VITALS RECORDED ON FLOOR SHEET. WILL CONTINUE TO MONITOR PT AND FOLLOW POC.
[2018-12-15 05:14] VITALS: BP 100/49
[2018-12-15 05:44] LABS: HEMATOCRIT 39.5 % (37.0-47.0); HEMOGLOBIN 13.5 gm/dL (12.0-15.0); MCH 31.3 pg (26.0-34.0); MCHC 34.2 g/dL (28.0-37.0); MCV 91.7 fL (80.0-100.0); RBC 4.31 mil/uL (4.20-5.00); RDW 13.2 % (10.5-14.5); WBC 8.6 thou/uL (4.0-11.0)
[2018-12-15 05:52] LABS: CALCIUM 8.6 mg/dL (8.5-10.1); CREATININE 0.6 mg/dL (0.6-1.0); POTASSIUM 4.1 mmol/L (3.5-5.1); TOTAL BILIRUBIN 0.3 mg/dL (<0.1-1.0); TOTAL PROTEIN 6.7 g/dL (6.4-8.2)
[2018-12-15 07:56] VITALS: BP 115/65
[2018-12-15] MEDS ORDERED: CLOPIDOGREL75 MG PO (08:37)
[2018-12-15 09:12] VITALS: BP 115/65
--- NOTE | 2018-12-15 10:42 | NUR ---
ASSUMED CARE OF PT AT SHIFT CHANGE. ASSESSMENT CHARTED. MEDS GIVEN PER JUL. PT ALERT AND ORIENTED, VSS, C/O CHRONIC PAIN IN RIGHT ARM, DENIES NEED FOR PAIN MEDICATION. O2 SATS WNL ON 4L O2, DENIES SOB. LEFT GROIN REMIANS CDI, NO HEMATOMA. DC ORDERS ACKNOWLEDGED AND IMPLEMENTED. DC PAPERWORK DISCUSSED WITH PT. COMMUNICATES UNDERSTANDING. IV REMOVED, TELE REMOVED. PT LEFT UNIT AT APPROX 1035 WITH ALL BELONGINGS.
--- NOTE | 2018-12-15 15:54 | EKG ---
[place] [address] [facility] [place] [address] ELECTROCARDIOGRAM REPORT Name: NAHUN COLLINS [facility] [id number] ������������������ Admission: 12/14/18 ������������������ Attend Phys: Hunter Brothers MD Discharge: 12/15/18 ������������������ Date of : 41 Report #: [id number] ����������������������������������������������������������������� [id number] THIS REPORT FOR: //name// [facility] Test Date: 2018-12-14 Test Time: 12:47:37 Pat Name: NAHUN COLLINS Department: Room: Gender: F Caponizer: Anil JORDAN : 1945 Requested By: Hunter Brothers Order Number: [id number] MD: Liang Travis Measurements Intervals [place] Rate: 83 P: 48 OR: 191 QRS: 94 QRSD: 100 T: 62 QT: 406 QTc: 477 Interpretive Statements Sinus rhythm Left posterior fascicular block Abnormal R-wave progression, late transition Compared to ECG 12/14/2018 09:02:00 No significant changes Electronically Signed On 12-15-2018 15:54:35 CDT by Liang Travis [email or web address] ��������������������������������������������� <ELECTRONICALLY SIGNED> ���������������������������������������� By: Liang Travis MD ��������������������������������������������� 12/15/18 1554 1247 1247 Liang Travis MD /[facility]
--- NOTE | 2018-12-15 16:04 | EKG ---
[place] [address] [address] [facility] [place] [address] ELECTROCARDIOGRAM REPORT Name: NAHUN COLLINS [facility] [id number] ������������������ Admission: 12/14/18 ������������������ Attend Phys: Hunter Brothers MD Discharge: 12/15/18 ������������������ Date of : 41 Report #: [id number] ����������������������������������������������������������������� [id number] THIS REPORT FOR: //name// [facility] Test Date: 2018-12-15 Test Time: 07:27:57 Pat Name: NAHUN COLLINS Department: Room: 200 I Gender: F Financial Services Intern: BEHZAD : 1945 Requested By: Hunter Brothers Order Number: [id number] MD: Liang Travis Measurements Intervals [place] Rate: 89 P: 26 NM: 174 QRS: 100 QRSD: 99 T: 28 QT: 372 QTc: 453 Interpretive Statements Sinus rhythm Right axis deviation Low voltage, precordial leads Compared to ECG 12/14/2018 09:02:00 Right-axis deviation now present Low QRS voltage now present Left posterior fascicular block no longer present Electronically Signed On 12-15-2018 16:04:05 CDT by Liang Travis [email or web address] ��������������������������������������������� <ELECTRONICALLY SIGNED> ���������������������������������������� By: Liang Travis MD ��������������������������������������������� 12/15/18 1604 6 07 Liang Travis MD /EPI
--- NOTE | 2018-12-16 09:49 | D ---
[facility] [address] [place] [address] DISCHARGE SUMMARY Name: NAHUN COLLINS Room #[facility] [id number] Admission: 12/14/18 ������������������ Attend Phys: Hunter Brothers MD Discharge: 12/15/18 ������������������ Date of : 41 Report #: [id number] THIS REPORT FOR: //name// CC: Hunter Brothers Peri Hardik FINAL DIAGNOSES: 1. Coronary artery disease, status post percutaneous coronary intervention. 2. Severe chronic obstructive pulmonary disease, oxygen dependent. 3. Peripheral vascular disease. 4. Chronic tobacco use. 5. Hypertension. 6. Hypercholesterolemia. HOSPITAL COURSE: The patient presented with unstable angina, found to have severe 2-vessel disease. Surgical consultation was obtained, deemed a poor candidate for open heart surgery in view of her severe COPD. She obtained a second surgical opinion at [facility], concluded with the same impression. She now presents electively for staged angioplasty involving the LAD. She underwent insertion of a drug-eluting stent to the proximal LAD stenosis. The RCA is heavily tortuous and calcified vessel. The plan is to treat medically for now. She remained stable and will be discharged home. FINAL DISPOSITION: Plavix 75 mg daily, aspirin once a day, insulin regimen, Lipitor 40 mg daily, metoprolol 25 mg daily, Imdur 30 mg daily and Chantix. She is given instructions for followup in a few weeks. ��������������������������������������������� <ELECTRONICALLY SIGNED> ���������������������������������������� By: Hunter Brothers MD ��������������������������������������������� 12/16/18 0949 0846 0903 Hunter Brothers MD /royce
== END 2018-12-15 10:38 | disposition home or self-care (01) ==
LOC: CATH 00:47 → 2N 14:59 → ENTRNSPT 12-15 10:25 → EDTRNSPTSTS 12-15 10:30 → CATH 12-15 10:38
PROVIDERS: Internal Medicine Cardiovascular Disease
DX: I25.110 Atherosclerotic heart disease of native coronary artery with unstable angina pectoris (principal); E11.9 Type 2 diabetes mellitus without complications; I25.2 Old myocardial infarction; J44.9 Chronic obstructive pulmonary disease, unspecified; I73.9 Peripheral vascular disease, unspecified; E78.5 Hyperlipidemia, unspecified; F17.210 Nicotine dependence, cigarettes, uncomplicated; Z79.4 Long term (current) use of insulin; Z90.49 Acquired absence of other specified parts of digestive tract; Z90.711 Acquired absence of uterus with remaining cervical stump; Z98.890 Other specified postprocedural states; Z86.73 Personal history of transient ischemic attack (TIA), and cerebral infarction without residual deficits; Z79.899 Other long term (current) drug therapy; Z87.19 Personal history of other diseases of the digestive system; Z82.49 Family history of ischemic heart disease and other diseases of the circulatory system; Z88.8 Allergy status to other drugs, medicaments and biological substances
CPT/HCPCS: 10081